=== PATIENT | male | born 1990 | race Caucasian/White ===

== ENCOUNTER 2022-12-24 21:02 | Emergency (ER) | payer OTHER ==
[2022-12-24 21:07] VITALS: BP 144/98; PULSE 99; RESP 20; TEMP 97.8; BMI 33.9
[2022-12-24 22:21] LABS: EOS % 4.8 % (0-4.5); HEMATOCRIT 42.7 % (35.4-49); HEMOGLOBIN 14.4 GM/dL (11.7-16.9); LYMPH % 36.6 % (8-40); MCH 28.5 pg (25.7-33.7); MCHC 33.8 g/dl (32.0-35.9); MEAN CELL VOLUME 84.4 fl (80-96); MEAN PLT VOLUME 7.6 fl (7.5-11.1); MONO % 7.9 % (3.8-10.2); NEUT % 49.7 % (42.8-82.8); PLATELET COUNT 298 10^3/uL (134-434); RBC 5.06 M/mm3 (4.00-5.60); RDW 13.2 % (11.9-15.9); WHITE BLOOD COUNT 7.4 K/mm3 (4.0-10.0)
[2022-12-24 23:08] LABS: POTASSIUM 4.3 mmol/L (3.5-5.1)
[2022-12-24 23:10] LABS: ALBUMIN 3.6 g/dl (3.4-5.0); BLOOD UREA NITROGEN 12.2 mg/dL (7-18); MAGNESIUM 1.7 mg/dL (1.8-2.4)
[2022-12-24 23:13] LABS: CREATININE 0.9 mg/dL (0.55-1.3)
[2022-12-24 23:14] LABS: BILIRUBIN,TOTAL 0.6 mg/dL (0.2-1); TOT PROT 6.8 g/dl (6.4-8.2)
== END 2022-12-24 23:47 | disposition home or self-care (01) ==
LOC: JER 21:02
DX: R06.02 Shortness of breath (principal); R55 Syncope and collapse; Z20.822 Contact with and (suspected) exposure to COVID-19
CPT/HCPCS: 0241U-QW; 36415; 71046-TC-FY; 80053; 80178; 83735; 84484; 85025; 85379; 93005; 93010; 99285-25